=== PATIENT | female | born 1960 | race Caucasian/White ===

== ENCOUNTER → 2017-02-20 | Outpatient (CLI) | payer BC ==
--- NOTE | 2017-02-24 14:43 | MM ---
Reason for exam: screening (asymptomatic). Last mammogram was performed 1 year ago. History: Patient is postmenopausal. Took hormonal contraceptives for 7 years 2 months beginning at age 38. Physical Findings: A clinical breast exam by your physician is recommended on an annual basis and results should be correlated with mammographic findings. MG Screening Mammo w CAD Bilateral CC and MLO view(s) were taken. Prior study comparison: February 12, 2016, bilateral MG screening mammo w CAD. There are scattered fibroglandular densities. No significant changes when compared with prior studies. ASSESSMENT: Benign, BI-RAD 2 RECOMMENDATION: Routine screening mammogram of both breasts in 1 year.
== END | disposition home or self-care (01) ==
LOC: RADMAMWWP 13:44
PROVIDERS: ATTEND Obstetrics & Gynecology
DX: Z12.31 Encounter for screening mammogram for malignant neoplasm of breast (principal)

== ENCOUNTER → 2018-03-18 | Outpatient (CLI) | payer BC ==
--- NOTE | 2018-03-19 10:04 | MM ---
Reason for exam: screening (asymptomatic). Last mammogram was performed 1 year and 1 month ago. History: Patient is postmenopausal. Took hormonal contraceptives for 7 years 2 months beginning at age 38. Physical Findings: A clinical breast exam by your physician is recommended on an annual basis and results should be correlated with mammographic findings. MG Screening Mammo w CAD Bilateral CC and MLO view(s) were taken. Prior study comparison: February 20, 2017, bilateral MG screening mammo w CAD. February 12, 2016, bilateral MG screening mammo w CAD. There are scattered fibroglandular densities. No significant changes when compared with prior studies. ASSESSMENT: Benign, BI-RAD 2 RECOMMENDATION: Routine screening mammogram of both breasts in 1 year.
== END | disposition home or self-care (01) ==
LOC: RADMAMWWP 10:13
PROVIDERS: ATTEND Obstetrics & Gynecology
DX: Z12.31 Encounter for screening mammogram for malignant neoplasm of breast (principal)
CPT/HCPCS: 77067

== ENCOUNTER → 2019-08-02 | Outpatient (CLI) | payer BC ==
--- NOTE | 2019-08-03 15:03 | MM ---
Reason for exam: screening (asymptomatic). Last mammogram was performed 1 year and 4 months ago. History: Patient is postmenopausal. Took hormonal contraceptives for 7 years 2 months beginning at age 38. Physical Findings: A clinical breast exam by your physician is recommended on an annual basis and results should be correlated with mammographic findings. MG Screening Mammo w CAD Bilateral CC and MLO view(s) were taken. Prior study comparison: March 18, 2018, bilateral MG screening mammo w CAD. February 20, 2017, bilateral MG screening mammo w CAD. There are scattered fibroglandular densities. No suspicious abnormality. No significant changes when compared with prior studies. ASSESSMENT: Negative, BI-RAD 1 RECOMMENDATION: Routine screening mammogram of both breasts in 1 year.
== END | disposition home or self-care (01) ==
LOC: RADMAMWWP 10:55
PROVIDERS: ATTEND Obstetrics & Gynecology
DX: Z12.31 Encounter for screening mammogram for malignant neoplasm of breast (principal)
CPT/HCPCS: 77067

== ENCOUNTER → 2020-10-26 | Outpatient (CLI) | payer BC, MEDICARE | END | disposition home or self-care (01) | LOC: LABWHC1 11:57 | PROVIDERS: ATTEND Otolaryngology | DX: J30.89 Other allergic rhinitis (principal) | CPT/HCPCS: 36415; 86001; 86003 ==

== ENCOUNTER → 2020-12-05 | Outpatient (CLI) | payer MEDICARE, BC ==
--- NOTE | 2020-12-07 11:35 | MM ---
Reason for exam: screening (asymptomatic). Last mammogram was performed 1 year and 4 months ago. History: Patient is postmenopausal. Took hormonal contraceptives for 7 years 2 months beginning at age 38. Physical Findings: A clinical breast exam by your physician is recommended on an annual basis and results should be correlated with mammographic findings. MG Screening Mammo w CAD Bilateral CC and MLO view(s) were taken. Prior study comparison: August 02, 2019, bilateral MG screening mammo w CAD. March 18, 2018, bilateral MG screening mammo w CAD. There are scattered fibroglandular densities. No significant changes when compared with prior studies. ASSESSMENT: Negative, BI-RAD 1 RECOMMENDATION: Routine screening mammogram of both breasts in 1 year.
== END | disposition home or self-care (01) ==
LOC: RADMAMWWP 13:55
PROVIDERS: ATTEND Family Medicine
DX: Z12.31 Encounter for screening mammogram for malignant neoplasm of breast (principal)
CPT/HCPCS: 77067

== ENCOUNTER → 2020-12-05 | Outpatient (CLI) | payer MEDICARE, BC ==
--- NOTE | 2020-12-05 15:50 | BD ---
EXAMINATION TYPE: Axial Bone Density DATE OF EXAM: 12/05/2020 COMPARISON: 07.12.2015 CLINICAL HISTORY: 60 YR OLD FEMALE.....ICD-10 CODE: Z78.0 POST MENOPAUSAL Height: 63.8 Weight: 139 FRAX RISK QUESTIONS: NOTHING TO NOTE HERE RISK FACTORS HISTORY OF: Family History of Osteoporosis: YES, MOTHER, NO HIP FX Active: YES Diet low in dairy products/other sources of calcium: YES Postmenopausal woman: YES, AT AGE 51 YRS OLD Lost more than 2 inches in height since high school: YES Hyperparathyroidism: NO Adrenal Insufficiency: NO MEDICATIONS: Prednisone or other steroids: FLONASE Additional Medications: VIT D, Additional History: HYPOGLYCEMIC, ARTHRITIS EXAM MEASUREMENTS: Bone mineral densitometry was performed using the [employer] System. Bone mineral density as measured about the Lumbar spine is: ----- L1-L4(G/cm2): 0.904 T Score Values are as follows: -----L1: -2.6 ----- L2: -2.9 ----- L3: -2.3 ----- L4: -1.3 ----- L1-L4: -2.3 Bone mineral density has: Decreased 21.5% SINCE..... 07.12.2015 Bone mineral density about the R hip (g/cm2): 0.871 Bone mineral density about the L hip (g/cm2): 0.937 T Score values are as follows: -----R Neck: -1.1 -----L Neck: -0.7 -----R Total: -1.1 -----L Total: -0.6 Bone mineral density has: Decreased -3.8% SINCE..... 07.12.2015 FRAX%s: THERE IS A 6.6% CHANCE FOR A MAJOR OSTEOPOROTIC FX AND A 0.4% FOR HIP.....PROBABILITY FOR FX IN 10 YRS TIME IMPRESSION: Osteopenia (T Score between -2.5 and -1). Note that measurements border on osteoporosis in the lumbar spine. There is slightly increased risk of fracture and the patient may be considered for treatment. Re-Screen 2-5 years. NOTE: T-SCORE=SD OF THE YOUNG ADULT MEAN.
== END | disposition home or self-care (01) ==
LOC: RADBDWWP 13:57
PROVIDERS: ATTEND Obstetrics & Gynecology
DX: M85.80 Other specified disorders of bone density and structure, unspecified site (principal); M81.0 Age-related osteoporosis without current pathological fracture
CPT/HCPCS: 77080

== ENCOUNTER → 2022-01-17 | Outpatient (CLI) | payer MEDICARE ==
--- NOTE | 2022-01-20 11:01 | MM ---
Reason for exam: screening (asymptomatic). Last mammogram was performed 1 year and 1 month ago. History: Patient is postmenopausal. Took hormonal contraceptives for 7 years 2 months beginning at age 38. Physical Findings: A clinical breast exam by your physician is recommended on an annual basis and results should be correlated with mammographic findings. MG 3D Screening Mammo W/Cad Bilateral CC and MLO view(s) were taken. Prior study comparison: December 05, 2020, bilateral MG screening mammo w CAD. August 02, 2019, bilateral MG screening mammo w CAD. There are scattered fibroglandular densities. Focal asymmetry right anterior MLO, may be summation. This finding is changed when compared with previous exams. ASSESSMENT: Incomplete: need additional imaging evaluation, BI-RAD 0 RECOMMENDATION: Special view mammogram of the right breast. If lesion persists on supplemental views, image directed ultrasound is recommended. [facility] will attempt to contact patient to return for supplemental views and ultrasound if indicated.
== END | disposition home or self-care (01) ==
LOC: RADMAMWWP 16:28
PROVIDERS: ATTEND Family Medicine
DX: Z12.31 Encounter for screening mammogram for malignant neoplasm of breast (principal); Z78.0 Asymptomatic menopausal state
CPT/HCPCS: 77063; 77067

== ENCOUNTER → 2022-01-22 | Outpatient (CLI) | payer MEDICARE ==
--- NOTE | 2022-01-22 08:52 | MM ---
Reason for exam: additional evaluation requested from abnormal screening. Last mammogram was performed less than 1 month ago. History: Patient is postmenopausal. Took hormonal contraceptives for 7 years 2 months beginning at age 38. Physical Findings: A clinical breast exam by your physician is recommended on an annual basis and results should be correlated with mammographic findings. MG 3D Work Up W/Cad RT LM and spot compression MLO view(s) were taken of the right breast. Prior study comparison: January 17, 2022, bilateral MG 3d screening mammo w/cad. December 05, 2020, bilateral MG screening mammo w CAD. There are scattered fibroglandular densities. No distinct lesion persists on additional views. Results were given to the patient verbally at the time of the exam. ASSESSMENT: Negative, BI-RAD 1 RECOMMENDATION: Return to routine screening mammogram schedule for both breasts.
== END | disposition home or self-care (01) ==
LOC: RADMAMWWP 07:40
PROVIDERS: ATTEND Family Medicine
DX: R92.8 Other abnormal and inconclusive findings on diagnostic imaging of breast (principal); Z78.0 Asymptomatic menopausal state
CPT/HCPCS: 77065; G0279; 77061

== ENCOUNTER → 2023-05-14 | Outpatient (CLI) | payer MEDICARE ==
--- NOTE | 2023-05-15 10:49 | MM ---
Reason for Exam: Screening (asymptomatic). Last mammogram was performed 1 year(s) and 4 month(s) ago. Patient History: Menarche at age 15. First Full-Term at age 20. Right ovary removed at age 14. Postmenopausal. Hormonal Contraceptives for 7 years, 2 months, from age 38 until age 45. Risk Values: Maria Guadalupe 5 year model risk: 1.0%. NCI Lifetime model risk: 5.3%. Prior Study Comparison: 12/05/2020 Bilateral Screening Mammogram, [facility]. 01/17/2022 Bilateral Screening Mammogram, [facility]. 01/22/2022 Right Diagnostic Mammogram, [facility]. Tissue Density: There are scattered fibroglandular densities. Findings: Analyzed By CAD. Pattern appears symmetrical and stable. No significant interval changes are evident. No suspicious groups of microcalcifications, spiculated or lobular masses, architectural distortion or other secondary signs of malignancy are mammographically apparent. Overall Assessment: Benign, BI-RAD 2 Management: Screening Mammogram of both breasts in 1 year. A negative mammogram report should not preclude additional follow up of suspicious palpable abnormalities. Patient should continue monthly self breast exam. A clinical breast exam by your physician is recommended on an annual basis and results should be correlated with mammographic findings. Electronically signed and approved by: Peter Ochoa D.O. Radiologis
== END | disposition home or self-care (01) ==
LOC: RADMAMWWP 13:46
PROVIDERS: ATTEND Family Medicine
DX: Z12.31 Encounter for screening mammogram for malignant neoplasm of breast (principal); Z78.0 Asymptomatic menopausal state
CPT/HCPCS: 77063; 77067

== ENCOUNTER → 2024-08-18 | Outpatient (CLI) | payer MEDICARE ==
--- NOTE | 2024-08-18 21:00 | BD ---
EXAMINATION TYPE: Axial Bone Density DATE OF EXAM: 08/18/2024 CLINICAL HISTORY: 64 years old Female. ICD-10 CODE: M85.89 OTH DISRD OF BONE DENSIT , Additional His tory: Height: 64 Weight: 134 FRAX RISK QUESTIONS: Family History (Parent hip fracture): no History of Fracture in Adulthood: yes Secondary Osteoporosis: no RISK FACTORS HISTORY OF: Surgery to Spine/Hip(right/left)/Wrist (right/left): no MEDICATIONS: Thyroid Medications: no Osteoporosis Medications: no EXAM MEASUREMENTS: Bone mineral densitometry was performed using the [employer] System. Bone mineral density as measured about the Lumbar spine is: ----- L1-L4(G/cm2): 1.000 T Score Values are as follows: ----- L1: -1.9 ----- L2: -1.8 ----- L3: -0.5 ----- L4: -1.7 ----- L1-L4: -1.5 Z Score Values are as follows: ----- L1: -0.4 ----- L2: -0.4 ----- L3: 0.9 ----- L4: -0.3 ----- L1-L4: -0.1 Bone mineral density has: Increased 23.6% since study of: 12/05/2020 Bone mineral density about the R hip (g/cm2): 0.841 Bone mineral density about the L hip (g/cm2): 0.903 T Score values are as follows: -----R Neck: -1.9 -----L Neck: -1.3 -----R Total: -1.3 -----L Total: -0.8 Z Score values are as follows: -----R Neck: -0.6 -----L Neck: 0.1 -----R Total: -0.3 -----L Total: 0.2 Bone mineral density has: Decreased -3.5% since study of: 12/05/2020 FRAX%s: The graph provided illustrates a 16.4% chance for a major osteoporotic fx and a 2.2% chance f or the hips probability for fx in 10 years time. IMPRESSION: Osteopenia (T Score between -2.5 and -1). There is slightly increased risk of fracture and the patient may be considered for treatment. Re-Screen 2-5 years. NOTE: T-SCORE=SD OF THE YOUNG ADULT MEAN. [facility], , 08/18/2024 8:57 PM
--- NOTE | 2024-08-19 12:34 | MM ---
Reason for Exam: Screening (asymptomatic). Last mammogram was performed 1 year(s) and 3 month(s) ago. Patient History: Menarche at age 15. First Full-Term at age 20. Right ovary removed at age 14. Postmenopausal. Hormonal Contraceptives for 7 years, 2 months, from age 38 until age 45. Risk Values: Maria Guadalupe 5 year model risk: 1.1%. NCI Lifetime model risk: 5.0%. Prior Study Comparison: 01/17/2022 Bilateral Screening Mammogram, [facility]. 01/22/2022 Right Diagnostic Mammogram, [facility]. 05/14/2023 Bilateral MG 3D screening mammo w/cad, [facility]. Tissue Density: There are scattered areas of fibroglandular density. Findings: Analyzed By CAD. Loop recorder present. Right breast: There is no suspicious group of microcalcifications or new suspicious mass. Left breast: There is no suspicious group of microcalcifications or new suspicious mass. Overall Assessment: Negative, BI-RAD 1 Management: Screening Mammogram of both breasts in [address] [facility] will attempt to contact patient to return for supplemental views and ultrasound if indicated. Patient should continue monthly self-breast exams. A clinical breast exam by your physician is recommended on an annual basis. This exam should not preclude additional follow-up of suspicious palpable abnormalities. Note on Maria Guadalupe scores and lifetime risk: 1. A Maria Guadalupe score greater than 3% is considered moderate risk. If this is the case, consider specialist referral to assess eligibility for a risk reducing agent. 2. If overall lifetime risk for the development of breast cancer is 20% or higher, the patient may qualify for future screening with alternating mammogram and breast MRI. [facility], , 08/19/2024 12:29 PM. Electronically signed and approved by: Kavon Zamudio DO
== END | disposition home or self-care (01) ==
LOC: RADBDWWP 15:56
PROVIDERS: ATTEND Family Medicine
DX: Z12.31 Encounter for screening mammogram for malignant neoplasm of breast (principal); Z13.820 Encounter for screening for osteoporosis; M85.89 Other specified disorders of bone density and structure, multiple sites; Z78.0 Asymptomatic menopausal state; R92.323 Mammographic fibroglandular density, bilateral breasts
CPT/HCPCS: 77063; 77067; 77080